=== PATIENT | female | born 1960 | race Caucasian/White ===

== ENCOUNTER → 2020-11-27 | Outpatient (REF) ==
[2020-11-27 12:41] LABS: POTASSIUM 3.4 mmol/L (3.5-5.1)
[2020-11-27 12:42] LABS: CALCIUM 9.5 mg/dL (8.3-10.5)
== END ==
LOC: LAB 10:19
PROVIDERS: Internal Medicine
DX: Z01.89 Encounter for other specified special examinations (principal)